=== PATIENT | female | born 1995 | race Caucasian/White ===

== ENCOUNTER 2024-07-05 07:25 | Inpatient (IN) | payer BC ==
[2024-07-05 20:56] VITALS: BMI 38.0
[2024-07-05] MEDS ORDERED: Zolpidem Tartrate 5 MG TAB PO PRN (20:58)
[2024-07-05] MEDS ORDERED: Oxytocin 30 units/NS 500 ML 500 ML IV SCH (20:58)
[2024-07-05] MEDS ORDERED: Carboprost 250 MCG/ML AMP IM PRN (20:58)
[2024-07-05] MEDS ORDERED: HYDROcodone/Acetaminophen 5/325 mg Tablet PO PRN ×2 (20:58)
[2024-07-05] MEDS ORDERED: Promethazine HCl 25 MG/ML VIAL IM PRN (20:58)
[2024-07-05] MEDS ORDERED: hydrALAZINE 20 MG/ML VIAL SLOW IVP PRN (20:58)
[2024-07-05] MEDS ORDERED: Lidocaine 1% (PF) 30 ML VIAL SC PRN (20:58)
[2024-07-05] MEDS ORDERED: Tranexamic Acid 1,000 MG/10 ML VIAL IVP PRN (20:58)
[2024-07-05] MEDS ORDERED: Diphenoxylate HCl/Atropine Tablet PO PRN ×2 (20:58)
[2024-07-05] MEDS ORDERED: Ibuprofen 800 MG TAB PO PRN (20:58)
[2024-07-05] MEDS ORDERED: Acetaminophen 500 MG TAB PO PRN (20:58)
[2024-07-05] MEDS ORDERED: fentaNYL 50 mcg/mL 1 mL Vial SLOW IVP PRN (20:58)
[2024-07-05 22:06] LABS: Hematocrit 36.7 % (34.9-44.5); Hemoglobin 12.7 g/dL (12.0-15.5); Mean Corpuscular HGB CONC 34.6 g/dL (32.0-36.0); Mean Corpuscular Hemoglobin 30.4 pg (27.0-33.0); Mean Corpuscular Volume 87.8 fL (81.6-98.3); Mean Platelet Volume 11.3 fL (7.4-10.4); Platelet Count 304 10x3/uL (150-450); RBC Distribution Width 12.8 % (11.5-14.5); Red Blood Cell (RBC) Count 4.18 10x6/uL (3.90-5.03); White Blood Cell (WBC) Count 13.4 10x3/uL (3.5-10.5)
[2024-07-05 22:21] LABS: HBsAg Index 0.19 S/CO (0-0.99); Hep B Surf Ag - L&D Non-Reactive S/CO (NonReactive); Syphilis Antibody Nonreactive (Nonreactive); Syphilis Antibody Index 0.08 S/CO (<1.00 Non-Reactive)
[2024-07-06] MEDS: Oxytocin 30 units/NS 500 ML 500 ML IV SCH (09:55)
[2024-07-06] MEDS: Ondansetron PF 4 MG/2 ML Vial IVP PRN ×3 (10:02→18:04)
[2024-07-06] MEDS: Misoprostol 100 MCG TAB VAG SCH (10:05)
[2024-07-06] MEDS: fentaNYL/Ropivacaine Epidural 100 ML ONE (12:05)
[2024-07-06] MEDS ORDERED: Naloxone HCl 0.4 mg/ml Vial IVP PRN ×4 (12:10→21:17)
[2024-07-06] MEDS ORDERED: diphenhydrAMINE 50 MG/ML VIAL IVP PRN ×2 (12:10→21:17)
[2024-07-06] MEDS ORDERED: Lactated Ringer's 500 ML IV PRN (12:10)
[2024-07-06] MEDS: ePHEDrine Sulfate 50 MG/10 ML VIAL SLOW IVP PRN (12:10)
[2024-07-06] MEDS ORDERED: Promethazine HCl 25 MG/ML VIAL IM PRN ×3 (12:10→21:17)
[2024-07-06] MEDS ORDERED: Acetaminophen 325 MG TAB PO PRN (12:10)
[2024-07-06] MEDS ORDERED: Moisturizing Cream (Eucerin) 113 GM JAR TOP PRN ×2 (12:10→21:17)
[2024-07-06] MEDS ORDERED: fentaNYL 2 mcg/Ropivacaine 0.2% Epidural 100 ML CADD EPIDURAL SCH (12:15)
[2024-07-06] MEDS ORDERED: Communication Order-Pharmacy FS SCH ×2 (12:15→21:30)
[2024-07-06] MEDS: Lactated Ringer's 1,000 ML IV SCH (12:25)
[2024-07-06] MEDS ORDERED: hydrALAZINE 20 MG/ML VIAL SLOW IVP PRN (16:01)
[2024-07-06] MEDS ORDERED: Oxytocin 30 units/NS 500 ML 500 ML IV SCH (16:15)
[2024-07-06] MEDS: CEFAZOLIN 2 GM in Sodium Chloride 0.9% 100 ML IVPB SCH (20:50)
[2024-07-06] MEDS ORDERED: Famotidine/PF 20 mg/2ml Vial SLOW IVP PRN (21:07)
[2024-07-06] MEDS ORDERED: Bicitra 30 ML UDCUP PO PRN (21:07)
[2024-07-06] MEDS ORDERED: Azithromycin 500 MG in Sodium Chloride 0.9% 250 ML 250 ML IVPB SCH (21:15)
[2024-07-06] MEDS ORDERED: Ondansetron PF 4 MG/2 ML Vial IVP PRN ×2 (21:17)
[2024-07-06] MEDS ORDERED: Meperidine HCl/PF 25 MG (1 mL) VIAL SLOW IVP PRN (21:17)
[2024-07-06] MEDS ORDERED: fentaNYL 50 mcg/mL 1 mL Vial SLOW IVP PRN (21:17)
[2024-07-06] MEDS ORDERED: Naloxone HCl 0.4 mg/ml Vial IV PRN (21:17)
[2024-07-06] MEDS: Methylergonovine 0.2 MG/ML VIAL IM PRN (21:46)
[2024-07-06] MEDS: Misoprostol 200 MCG TAB PR PRN (22:23)
[2024-07-06] MEDS: CEFAZOLIN 2 GM VIAL ONE (23:19)
[2024-07-06] MEDS: Azithromycin 500 MG VIAL ONE (23:19)
[2024-07-06] MEDS: Oxytocin 10 UNITS/ML VIAL ONE (23:20)
[2024-07-06] MEDS: Dexamethasone 10 MG/ML VIAL ONE (23:20)
[2024-07-06] MEDS: Morphine PF 10 MG/10 ML VIAL ONE (23:20)
[2024-07-06] MEDS: Promethazine HCl 25 MG/ML VIAL ONE (23:20)
[2024-07-06] MEDS: Dexmedetomidine 200 MCG/2 ML VIAL ONE (23:20)
[2024-07-06] MEDS: ePHEDrine Sulfate 50 MG/10 ML VIAL ONE (23:20)
[2024-07-06] MEDS: Lidocaine 2% MPF 10 ML AMP (For Epidural Use) ONE (23:20)
[2024-07-06] MEDS: Ondansetron PF 4 MG/2 ML Vial ONE (23:20)
[2024-07-06] MEDS: Ketorolac Tromethamine 30 MG (1 mL) VIAL ONE (23:20)
[2024-07-06] MEDS: Tranexamic Acid 1,000 MG/10 ML VIAL ONE (23:20)
[2024-07-07] MEDS ORDERED: hydrALAZINE 20 MG/ML VIAL SLOW IVP PRN (03:51)
[2024-07-07] MEDS ORDERED: diphenhydrAMINE 25 MG CAP PO PRN (03:51)
[2024-07-07] MEDS ORDERED: Lanolin Ointment 7 GM TUBE TOP PRN (03:51)
[2024-07-07] MEDS ORDERED: Acetaminophen 325 MG TAB PO PRN (03:51)
[2024-07-07] MEDS ORDERED: Bisacodyl 10 MG SUPP PR PRN (03:51)
[2024-07-07] MEDS: Ketorolac Tromethamine 30 MG (1 mL) VIAL IVP SCH ×2 (06:40→08:50)
[2024-07-07] MEDS: Sodium Chloride 0.9% 10 ML ONE (08:37)
[2024-07-07] MEDS: Boostrix 0.5 ML (Tdap) VIAL (>/=7 yrs of age) IM ONE (08:47)
[2024-07-07] MEDS: CEFAZOLIN 2 GM VIAL ONE (08:49)
[2024-07-07] MEDS: Prenatal Vitamin 1 TAB PO SCH (08:58)
[2024-07-07] MEDS: Simethicone Chewable 80 MG TAB PO PRN (08:58)
[2024-07-07] MEDS: Docusate 100 MG CAP PO SCH (08:58)
[2024-07-07] MEDS: HYDROcodone/Acetaminophen 5/325 mg Tablet PO PRN (09:37)
[2024-07-07] MEDS: Ferrous Sulfate 325 MG TAB PO SCH (09:38)
[2024-07-07] MEDS ORDERED: HYDROcodone/Acetaminophen 5/325 mg Tablet PO PRN (09:45)
[2024-07-07] MEDS: Ibuprofen 800 MG TAB PO SCH (14:25)
[2024-07-08 05:55] LABS: Hematocrit 29.1 % (34.9-44.5); Hemoglobin 9.6 g/dL (12.0-15.5); Mean Corpuscular Hemoglobin 30.1 pg (27.0-33.0); Mean Corpuscular Volume 91.2 fL (81.6-98.3); Mean Platelet Volume 11.2 fL (7.4-10.4); Platelet Count 230 10x3/uL (150-450); RBC Distribution Width 13.2 % (11.5-14.5); Red Blood Cell (RBC) Count 3.19 10x6/uL (3.90-5.03); White Blood Cell (WBC) Count 14.8 10x3/uL (3.5-10.5)
[2024-07-08 08:28] VITALS: BP 94/50; TEMP 97.9
== END 2024-07-08 14:10 | disposition home or self-care (01) | DRG 788 ==
LOC: CSHLD 20:25 → CSHPP 07-07 01:35
PROVIDERS: ADMIT Obstetrics & Gynecology; ATTEND Obstetrics & Gynecology
PROC: 10D00Z1 Extraction of Products of Conception, Low, Open Approach (ICD-10-PCS; principal; 2024-07-06)
DX: O48.0 Post-term pregnancy (principal); Z37.0 Single live birth; Z3A.40 40 weeks gestation of pregnancy; O62.2 Other uterine inertia
CPT/HCPCS: 36415; 51702; 85027; 86780; 86850; 86900; 86901; 87340; J1100; J1885; J2210; J2274; J2405; J2550; J2590; J7120